=== PATIENT | female | born 1975 | race Two or more races ===

== ENCOUNTER 2021-01-22 20:34 | Emergency (ER) | payer OTHER ==
[~2021-01-22] VITALS: Ht 160 cm; Wt 108.6 kg
--- NOTE | 2021-01-22 21:39 | PHYS DOC ---
Past Medical History Past Surgical History: , Hysterectomy Smoking Status: Never Smoker Alcohol Use: None General Adult EDM: Chief Complaint: SHOULDER INJURY HPI: HPI: Patient is a 45 year old female presents for evaluation of right shoulder pain. Patient states she was walking down some steps while holding a rail when she slipped resulting in an injury to her right upper extremity. Patient feels like she dislocated her right shoulder. Patient states she had significant pain and decreased range of motion and numbness and tingling of her right shoulder. In route to the ER patient bumped her right shoulder on the door while the car was turning and felt a pop. After this incident patient states pain greatly improved and she feels as if her shoulder went back into its proper position. On exam I do not see any deformities. She has full sensation of the RIGHT deltoid region and right upper extremity. Patient has decreased range of motion at the right shoulder due to pain. Patient has full range of motion of the right elbow right wrist. Patient denies any other injuries Review of Systems: Review of Systems: Review of systems: Constitutional symptoms- No fever, no chills. Eyes- No Discharge, No Visual Loss Respiratory symptoms- No shortness of breath, No wheezing, No Dyspnea on Exertion Cardiovascular Systems; No chest pain, No Palpitations, No syncope Gastrointestinal symptoms: NO abdominal pain, no nausea, no vomiting or diarrhea. Genitourinary symptoms: No dysuria. Musculoskeletal symptoms: No back pain Positive extremity pain. NEUROLOGICAL Symptoms: No headache, no generalized weakness; No focal Weakness Skin: No rash. Heart Score: C/O Chest Pain: N/A Risk Factors: Risk Factors: DM, Current or recent (<one month) smoker, HTN, HLP, family histo ry of CAD, obesity. Risk Scores: Score 0 - 3: 2.5% MACE over next 6 weeks - Discharge Home Score 4 - 6: 20.3% MACE over next 6 weeks - Admit for Clinical Observation Score 7 - 10: 72.7% MACE over next 6 weeks - Early Invasive Strategies Allergies: Allergies: Allergies Coded Allergies Type Severity Reaction Last Updated Verified No Known Drug Allergies 01/22/21 No Physical Exam: PE: Constitutional: Well developed, well nourished, no acute distress, non-toxic appearance. [] HENT: Normocephalic, atraumatic, bilateral external ears normal, oropharynx moist, no oral exudates, nose normal. [] Eyes: PERRLA, EOMI, conjunctiva normal, no discharge. [] Neck: Normal range of motion, no tenderness, supple, no stridor. [] Cardiovascular:Heart rate regular rhythm, no murmur [] Lungs & Thorax: Bilateral breath sounds clear to auscultation [] Abdomen: Bowel sounds normal, soft, no tenderness, no masses, no pulsatile masses. [] Skin: Warm, dry, no erythema, no rash. [] Back: No tenderness, no CVA tenderness. [] Extremities: No tenderness, no cyanosis, no clubbing, ROM intact, no edema. [] Neurologic: Alert and oriented X 3, normal motor function, normal sensory function, no focal deficits noted. [] Psychologic: Affect normal, judgement normal, mood normal. [] Current Patient Data: Vital Signs: Vital Signs Date Time Temp Pulse Resp B/P (MAP) Pulse Ox O2 Delivery O2 Flow Rate FiO2 01/22/21 20:48 98.4 110 26 147/75 (99) 100 Room Air 98.4 EKG: EKG: [] Radiology/Procedures: Radiology/Procedures: [] Impression: Wet read no acute fracture or dislocation right shoulder Course & Med Decision Making: Course & Med Decision Making Pertinent Labs and Imaging studies reviewed. (See chart for details) [] Patient was evaluated for chief complaint. Work-up consisted of radiologic imaging. No acute fracture or dislocation visualized on my wet read of right shoulder. Patient provided a shoulder immobilizer. She was prescribed Ultram for breakthrough pain and advised to take OTC Tylenol or Motrin as needed. Patient referred to orthopedics. Anu Disclaimer: Anu Disclaimer: This electronic medical record was generated, in whole or in part, using a voice recognition dictation system. Departure Departure Impression: Primary Impression: Shoulder pain Additional Impressions: Shoulder pain, right Shoulder dislocation Disposition: HOME / SELF CARE / HOMELESS Condition: STABLE Referrals: NO PCP (PCP) Patient Instructions: Shoulder Dislocation, Shoulder Pain Scripts Tramadol Hcl (ULTRAM) 50 Mg Tablet 1 TAB PO PRN Q6HRS PRN for pain MDD 4 Tablet(s) for 7 Days, #28 TAB 0 Refills Prov: ALICE IVY DO 01/22/21 ALICE IVY I DO Jan 22, 2021 21:39
[2021-01-22] MEDS ORDERED: TRAM-48 PO (22:17)
--- NOTE | 2021-01-22 22:33 | RAD ---
Three views right shoulder History: pain Internally and externally rotated AP of shoulder obtained, as well as "Y" view. The glenohumeral relationship is normal. The visualized osseous structures appear normal. Impression: No acute findings. end impression Electronically signed by: Massimo Graham III, MD (01/22/2021 10:31 PM) [facility]
[2021-01-22 22:49] VITALS: BP 142/69
== END 2021-01-22 23:18 | disposition home or self-care (01) ==
LOC: ER 20:34
DX: S43.004A Unspecified dislocation of right shoulder joint, initial encounter (principal); W01.0XXA Fall on same level from slipping, tripping and stumbling without subsequent striking against object, initial encounter; Y93.89 Activity, other specified; Y92.89 Other specified places as the place of occurrence of the external cause; Y99.8 Other external cause status
CPT/HCPCS: 29105; 73030; 99284; 99285